=== PATIENT | male | born 1965 | race African-American/Black ===

== ENCOUNTER 2020-03-07 06:03 | Inpatient (IN) | payer MEDICARE, MEDICAID ==
[~2020-03-07] VITALS: Ht 185.4 cm; Wt 80.0 kg
[~2020-03-07 06:03] MED LIST: DOBUTamine/D5W 500mg/250ml premix IV ONE
[2020-03-07] MEDS: furosemide 10 MG/1 ML 10ml inj IV ONE ×2 (07:19→07:21)
[2020-03-07 07:32] LABS: HEMATOCRIT 38.4 % (42.0-52.0); HEMOGLOBIN 12.4 g/dl (14.0-17.9); RED BLOOD COUNT 3.96 X10'6 (4.70-6.10)
[2020-03-07 07:34] LABS: MEAN CORPUSCULAR HEMOGLOBIN 31.3 PG (27.0-31.0); MEAN CORPUSCULAR HGB CONC 32.3 g/dL (33.0-36.5); MEAN CORPUSCULAR VOLUME 96.9 FL (78-98); MEAN PLATELET VOLUME 12.8 FL (7.4-10.4); RED CELL DISTRIBUTION WIDTH 13.8 % (11.5-14.5); WHITE BLOOD COUNT 18.8 X10'3 (4.5-11.0)
[2020-03-07 07:45] LABS: COLOR,URINE AMBER (Yellow); GLUCOSE, URINE 100 mg/dl (Neg); KETONES,URINE TRACE mg/dl (Neg); LEUKOCYTE ESTERASE ,URINE NEGATIVE (Neg); OCCULT BLOOD,URINE MODERATE (Neg); PROTEIN,URINE 100 mg/dl (Neg); UROBILINOGEN,URINE >=8.0 E.U/dL (0.2-1.0)
[2020-03-07 07:56] LABS: PARTIAL THROMBOPLASTIN TIME > 139 SECONDS (22-32)
[2020-03-07 07:59] LABS: ACETAMINOPHEN < 2.0 UG/ML (10-30); ALANINE AMINOTRANSFERASE 114 U/L (12-78); ALBUMIN 2.3 G/DL (3.4-5.0); ALBUMIN/GLOBULIN RATIO 0.7 (1.1-1.5); ALKALINE PHOSPHATASE 61 IU/L (46-116); ANION GAP 26 (8-16); ASPARTATE AMINO TRANSFERASE 237 U/L (10-37); BILIRUBIN,TOTAL 2.2 MG/DL (0.1-1.0); BLOOD UREA NITROGEN 71 MG/DL (7-18); BUN/CREATININE RATIO 16.9 (5.4-32.0); CALCIUM 8.3 MG/DL (8.5-10.1); CHLORIDE 102 MMOL/L (99-107); CREATININE 4.19 MG/DL (0.60-1.10); ETHANOL < 0.010 GM/DL (0.0-0.010); POTASSIUM 4.6 MMOL/L (3.5-5.1); SODIUM 140 MMOL/L (135-145); TOTAL PROTEIN 5.8 G/DL (6.4-8.2); eGFR 18 ML/MIN
[2020-03-07 08:00] LABS: UA COLLECTION TYPE STRAIGHT CATH
[2020-03-07 08:01] LABS: GLUCOSE 45 MG/DL (70-104); TOTAL CARBON DIOXIDE 11.6 MMOL/L (24-32)
[2020-03-07] MEDS ORDERED: Potassium Cl inj 20 MEQ, magnesium sulf injection 2 GM, folic acid inj. 1 MG, thiamine ... IV ONE ×6 (08:01)
[2020-03-07 08:02] LABS: CLARITY,URINE SLIGHTLY CLOUDY (Clear)
[2020-03-07 08:04] LABS: RBC,URINE 0-2 /HPF (0-2)
[2020-03-07 08:05] LABS: BACTERIA,URINE FEW /HPF (Neg); CELLULAR CAST 0-4 /LPF (NEGATIVE); HYALINE CASTS 0-3 /LPF (NEGATIVE); MUCUS STRANDS NONE SEEN /LPF (Neg); SQUAMOUS EPITHELIAL CELL,UR FEW /LPF (FEW); WBC CLUMPS,URINE FEW /HPF (NEGATIVE)
[2020-03-07] MEDS ORDERED: DOBUTamine-DoBUTrex 500mg/D5W 250 ML IV PRN (08:05)
[2020-03-07] MEDS ORDERED: vancomycin inj. 750 MG in normal saline 250ml IV soln 250 ML IV SCH (08:10)
[2020-03-07] MEDS ORDERED: K, MAG and/or Phos replacement - Verify level? MC SCH (08:10)
[2020-03-07] MEDS ORDERED: LIDOcaine 2% 10ml TOPICAL JELLY (Urojet) TP ONE ×2 (08:10)
[2020-03-07] MEDS ORDERED: acetaminophen 325mg tablet PO PRN ×2 (08:10)
[2020-03-07] MEDS ORDERED: morphine 4 MG/ML inj SYRINge IV PRN (08:10)
[2020-03-07] MEDS ORDERED: morphine 2 MG/ML inj. syringe IV PRN ×2 (08:10→11:40)
[2020-03-07] MEDS ORDERED: DOBUTamine-DoBUTrex 500mg/D5W 250 ML IV SCH (08:10)
[2020-03-07] MEDS ORDERED: potassium Cl 20 mEq SR tablet PO PRN ×2 (08:10)
[2020-03-07] MEDS ORDERED: magnesium hydroxide 30ml (MOM) UD suspension PO PRN ×2 (08:10)
[2020-03-07] MEDS ORDERED: ondansetron/PF 4mg/2ml inj IV PRN ×2 (08:10)
[2020-03-07] MEDS ORDERED: dextrose 5%-1/2 normal saline 1,000 ML IV ONE (08:15)
[2020-03-07] MEDS ORDERED: magnesium 2GM in 50ml NS 50 ML IV ONE (08:17)
[2020-03-07] MEDS ORDERED: DEXTROSE 5% IV ONE (08:19)
[2020-03-07] MEDS ORDERED: POTASSIUM ACETATE IV ONE (08:19)
[2020-03-07] MEDS ORDERED: 1/2 NORMAL SALINE IV ONE (08:19)
[2020-03-07] MEDS ORDERED: Potassium Cl inj 20 MEQ in dextrose 5%-1/2 normal saline 990 ML IV ONE (08:21)
[2020-03-07 08:22] LABS: PLATELET COUNT 46 X10'3 (140-440)
[2020-03-07] MEDS ORDERED: potassium CL 20mEq in D5-1/2NS 1,000 ML IV ONE (08:30)
[2020-03-07] MEDS ORDERED: vancomycin/NS 1 GM ADD-VANTAGE 250 ML IV ONE (08:30)
[2020-03-07] MEDS ORDERED: folic acid 1mg/0.2ml inj IV ONE (08:30)
[2020-03-07] MEDS ORDERED: thiamine inj. 100 MG in normal saline 100ml IV soln 100 ML IV ONE (08:30)
[2020-03-07] MEDS ORDERED: MVI, adult No.4 with vit. K 10 ML in dextrose 5% water 500ml 500 ML IV ONE ×2 (08:30)
[2020-03-07 08:37] LABS: BURR CELLS 3+; NUCLEATED RED BLOOD CELLS 1 /100WBC (0-0); PLATELET ESTIMATE DECREASED; TOTAL CELLS COUNTED 100
[2020-03-07 08:38] LABS: GIANT PLATELET FEW; LARGE PLATELETS MODERATE
[2020-03-07 08:39] LABS: ANISOCYTOSIS FEW; TOXIC GRANULATION 2+; TOXIC VACUOLATION 1+
[2020-03-07 08:40] LABS: SMUDGE CELLS FEW
[2020-03-07] MEDS ORDERED: normal saline 1000ML IV soln IVB ONE (08:55)
[2020-03-07 09:06] LABS: LACTATE DEHYDROGENASE 776 U/L (85-227)
[2020-03-07 09:32] LABS: URINE AMPHETAMINE SCREEN NEGATIVE (Neg); URINE BARBITUATE SCREEN NEGATIVE (Neg); URINE BENZODIAZEPINES SCREEN NEGATIVE (Neg); URINE CANNABINOID SCREEN NEGATIVE (Neg); URINE COCAINE SCREEN NEGATIVE (Neg); URINE METHADONE SCREEN NEGATIVE (Neg); URINE OPIATE SCREEN POSITIVE (Neg); URINE PHENCYCLIDINE SCREEN NEGATIVE (Neg)
[2020-03-07 09:46] LABS: D-DIMER 16.47 MG/L FEU (0-0.50); PARTIAL THROMBOPLASTIN TIME 40 SECONDS (22-32)
[2020-03-07 10:12] LABS: PLATELET COUNT 40 X10'3 (140-440)
[2020-03-07 10:30] VITALS: BP 77/52
--- NOTE | 2020-03-07 10:30 | NUR ---
Pt arrived from ED via gurney transported by [facility]. Report received. Dr. Flowers on unit and aware. Pt is tachypneic, delerious, and hypotensive. Unable to obtain sPO2. Mixed Venous ordered.
--- NOTE | 2020-03-07 10:35 | NUR ---
DR GROSS NOTIFIED OF LACTIC ACID 14.8, BS 56,
--- NOTE | 2020-03-07 10:38 | NUR ---
ICU NURSE INFORMED OF SUHAS AND IFTIKHAR.
[2020-03-07 10:39] LABS: NITRITES, URINE NEGATIVE (Neg)
[2020-03-07] MEDS ORDERED: dextrose 50%-water 50ml dispensing syringe IV ONE (10:40)
[2020-03-07 11:00] VITALS: BP 75/52
[2020-03-07 11:15] LABS: OXYGEN SATURATION (MIXED VEN) 50.2 % (60-80); PO2 MIXED VENOUS (TEMP COR) 35.2 mmHg (35-46)
--- NOTE | 2020-03-07 11:15 | NUR ---
Right femoral arterial line placed by Dr Flowers, Dobutamine increased to 10 mcg/kg/min.
[2020-03-07 11:40] LABS: ABG BASE EXCESS -18.4 mmol/L (-2.0-3.0); ABG HCO3 7.3 mmol/L (22.0-26.0); ABG OXYGEN SATURATION 95.8 % (95-98); ABG PCO2 (T) 18.4 mmHg (35.0-45.0); ABG PH (T) 7.216 (7.350-7.450); FCOHb 0.3 % (0.5-1.5); FLOW 5 L/min; FMetHb 0.1 % (0.3-1.12); FO2Hb 95.4 % (94-100); TOTAL HEMOGLOBIN 11.8 G/dl (14.0-17.9)
[2020-03-07 12:00] VITALS: BP 64/38
[2020-03-07] MEDS ORDERED: vancomycin/NS 1 GM ADD-VANTAGE 250 ML IV SCH (12:00)
[2020-03-07] MEDS ORDERED: NO HOME MEDS (12:22)
[2020-03-07 13:00] VITALS: BP 62/35
[2020-03-07 14:00] VITALS: BP 61/33
[2020-03-07 15:00] VITALS: BP 54/27
--- NOTE | 2020-03-07 15:42 | NUR ---
Pt is asystolic, pulseless, apniec.
--- NOTE | 2020-03-07 15:42 | NUR ---
RN IS TO DOCUMENT YES TO ALL APPLICABLE AREAS Pronouncement of : 1. Time Physician Notified:[id number] 2. Date of :03/07/20 3. Time of : 1540 4. DNR/Withdraw life support documented:Y 5. Monitor strip has been placed on chart:Y 6. Assessment process is of one-minute duration and includes following criteria: a) Patient is unresponsive to all stimuli:Y b) Pupils fixed and non-reactive:Y c) Auscultation of precordium reveals absence of heart tones:Y d) Auscultation of lungs reveals absence of breath sounds:Y e) Absence of blood pressure / all vital signs:y f) QRS complexes are not present on monitor / EKG strip:Y g) Pacer spikes without capture:NA 4. Comments:
[2020-03-07] MEDS ORDERED: heparin, porcine 5000 units/ml vial SQ SCH (20:00)
[2020-03-08] MEDS ORDERED: pantoprazole 40mg Tablet.DR PO SCH (07:30)
[2020-03-08] MEDS ORDERED: CefTRIAXone 2gm/D5W 50ml 50 ML IV SCH (08:00)
[2020-03-10] MEDS ORDERED: VANCOMYCIN LEVEL IV ONE (11:30)
== END 2020-03-07 10:41 | disposition expired | DRG 871 ==
LOC: ER 06:03 → ED HOLD 08:07 → EDBEDREQ 09:16 → ICU 2S 10:04
PROVIDERS: ADMIT Internal Medicine Critical Care Medicine; ATTEND Internal Medicine Critical Care Medicine
PROC: 02HV33Z Insertion of Infusion Device into Superior Vena Cava, Percutaneous Approach (ICD-10-PCS; principal; 2020-03-07)
DX: A41.9 Sepsis, unspecified organism (principal); I50.21 Acute systolic (congestive) heart failure; E87.2 Acidosis; R57.0 Cardiogenic shock; I42.6 Alcoholic cardiomyopathy; I42.8 Other cardiomyopathies; D69.6 Thrombocytopenia, unspecified; E16.2 Hypoglycemia, unspecified; E78.5 Hyperlipidemia, unspecified; F17.200 Nicotine dependence, unspecified, uncomplicated; F10.20 Alcohol dependence, uncomplicated; R06.03 Acute respiratory distress; Z20.828 Contact with and (suspected) exposure to other viral communicable diseases; F32.9 Major depressive disorder, single episode, unspecified; I11.0 Hypertensive heart disease with heart failure; Z51.5 Encounter for palliative care; Z66 Do not resuscitate; Z86.73 Personal history of transient ischemic attack (TIA), and cerebral infarction without residual deficits; Z95.3 Presence of xenogenic heart valve; Z95.5 Presence of coronary angioplasty implant and graft
CPT/HCPCS: 36415; 36556; 36600; 71045; 80053; 80305; 80320; 80329; 81001; 82140; 82803; 82810; 82948; 83605; 83615; 83880; 84145; 84443; 84484; 85018; 85025; 85379; 85384; 85610; 85730; 87040; 87077; 87088; 87186; 87635; 93005; 93306; 96374; 99291; 99292; G0378; J1250; J1940; J3370; J3411; J3475; J3480; J3490; J7030; J7060